=== PATIENT | female | born 1980 ===

== ENCOUNTER 2018-12-11 21:14 | Emergency (ER) | payer MEDICAID ==
[2018-12-11 21:51] VITALS: BP 121/77; PULSE 81; TEMP 98.8; O2SAT 98
[2018-12-11 21:56] VITALS: RESP 18
[2018-12-11 22:22] LABS: BASO % 0.6 % (0.0-2.0); EOS # 0.1 K/uL (0.0-0.7); EOS % 0.8 % (0.0-4.0); HEMOGLOBIN 12.8 g/dL (12.0-16.0); LYMPH # 2.4 K/uL (1.0-4.3); LYMPH % 28.3 % (20.0-40.0); MEAN CELL VOLUME 90.9 fl (81.0-99.0); MEAN CORPUSCULAR HEMOGLOBIN 30.3 pg (27.0-31.0); MEAN CORPUSCULAR HGB CONC 33.4 g/dL (33.0-37.0); MEAN PLATELET VOLUME 9.4 fl (7.2-11.7); MONO # 0.5 K/uL (0.0-0.8); MONO % 6.5 % (0.0-10.0); NEUT # 5.3 K/uL (1.8-7.0); NEUT % 63.8 % (50.0-75.0); RBC 4.21 Mil/uL (3.80-5.20); RED CELL DISTRIBUTION WIDTH 13.1 % (11.5-14.5); WHITE BLOOD COUNT 8.4 K/uL (4.8-10.8)
[2018-12-11 22:38] LABS: ALB/GLOB RATIO 1.4 (1.0-2.1); ALBUMIN 4.3 g/dL (3.5-5.0); ALT/SGPT 30 U/L (9-52); AST/SGOT 22 U/L (14-36); BLOOD UREA NITROGEN 9 mg/dl (7-17); CALCIUM 9.1 mg/dL (8.4-10.2); GFR NON-AFRICAN AMERICAN > 60
--- NOTE | 2018-12-11 23:44 | ED PDOC ---
HPI: Female Pain Time Seen by Provider: 12/11/18 22:43 Chief Complaint (Nursing): Female Genitourinary Chief Complaint (Provider): vaginal spotting History Per: Patient (38 y/o female approx 8 week gestation here with pink spotting noted with wiping today. NO abdominal pain noted. Denies any other complaints.) Past Medical History Reviewed: Historical Data, Nursing Documentation, Vital Signs Vital Signs: Last Vital Signs Temp 98.8 F 12/11/18 21:54 Pulse 81 12/11/18 21:54 Resp 18 12/11/18 21:54 BP 121/77 12/11/18 21:54 Pulse Ox 98 12/11/18 21:54 Primary Care Provider: Doctor,Conversion - Family History Family History: States: No Known Family Hx - Allergies Allergies/Adverse Reactions: Allergies Allergy/AdvReac Type Severity Reaction Status Date / Time No Known Allergies Allergy Verified 12/11/18 21:54 Review of Systems ROS Statement: Except As Marked, All Systems Reviewed And Found Negative Genitourinary Female: Positive for: Vaginal Bleeding Physical Exam - Reviewed Nursing Documentation Reviewed: Yes Vital Signs Reviewed: Yes - Physical Exam Appears: Positive for: Well, Non-toxic, No Acute Distress Head Exam: Positive for: ATRAUMATIC, NORMAL INSPECTION, NORMOCEPHALIC Skin: Positive for: Normal Color, Warm, DRY Eye Exam: Positive for: EOMI, Normal appearance, PERRL ENT: Positive for: Normal ENT Inspection Neck: Positive for: Normal, Painless ROM Cardiovascular/Chest: Positive for: Regular Rate, Rhythm Respiratory: Positive for: CNT, Normal Breath Sounds Gastrointestinal/Abdominal: Positive for: Normal Exam, Soft Pelvic Exam: Positive for: Other (no bleeding noted on exam. cervix not open) Back: Positive for: Normal Inspection Extremity: Positive for: Normal ROM Neurological/Psych: Positive for: Awake, Alert, Normal Tone - Laboratory Results Result Diagrams: 12/11/18 22:15 12/11/18 22:15 Lab Results: Total Bilirubin 0.2 mg/dl (0.2-1.3) 12/11/18 22:15 AST 22 U/L (14-36) 12/11/18 22:15 ALT 30 U/L (9-52) 12/11/18 22:15 Alkaline Phosphatase 41 U/L (38-126) 12/11/18 22:15 Total Protein 7.3 G/DL (6.3-8.2) 12/11/18 22:15 Albumin 4.3 g/dL (3.5-5.0) 12/11/18 22:15 Globulin 3.1 gm/dL (2.2-3.9) 12/11/18 22:15 Albumin/Globulin Ratio 1.4 (1.0-2.1) 12/11/18 22:15 Beta HCG, Quant 078505.00 mIU/mL 12/11/18 22:15 - ECG O2 Sat by Pulse Oximetry: 98 - Progress ED Course And Treament: Patient is Rh negative. d/w Dr. Huerta. After discussion with him we will hold off on Rhogam. Patient to f/u with meter maintenance person. Advised to return for worsening vaginal bleeding. Medical Decision Making Medical Decision Making: EXAM: US Obstetrical, Complete <14 weeks CLINICAL HISTORY: THREATENED MISCARRIAGE TECHNIQUE: Transvaginal and transabdominal imaging of the maternal pelvis and a <14 week gestation with image documentation. COMPARISON: None provided. FINDINGS: GESTATION: A single early living IUP is identified estimated to be 8 weeks and 6 days in age, +/- 4 days. The RITCHIE is 07/17/2019. cardiac activity documented being at a rate of 158 BPM. UTERUS: Small uterine fibroids are seen along the lower uterine segment measuring 0.9 x 0.8 cm and posterior uterine body measuring 1.0 x 0.9 cm. CERVIX: Closed. Unremarkable. OVARIES: Unremarkable. No mass. A 1.7 x 2.0 x 1.8 cm cyst is noted in the right ovary. This cyst appears somewhat deformed which likely represents an involuting corpus luteum cyst. A few tiny left ovarian follicles are identified. FREE FLUID: No free fluid. IMPRESSION: Single living intrauterine . No acute abnormality. Tiny uterine fibroids noted as described above. A 1.7 x 2.0 cm right ovarian cyst is present. Probably an involuting corpus luteum cyst Electronically signed on December 11, 2018 11:34:27 PM EDT by: Corwin Nichols M.D., M.B.A., Certified By [employer] Trained MRI and CT Specialist Disposition - Clinical Impression Clinical Impression: Threatened miscarriage - Patient ED Disposition Is Patient to be Admitted: No - Disposition Disposition: Routine/Home Disposition Time: 23:56 Condition: FAIR Instructions: Threatened Miscarriage
--- NOTE | 2018-12-12 17:40 | US ---
Date of service: 12/11/2018 PROCEDURE: OB Pelvic Ultrasound HISTORY: THREATENED MISCARRIAGE LMP: 10/15/2018, suggesting 8 week 1 day gestation. COMPARISON: None available. FINDINGS: UTERUS: Gestational sac: Single intrauterine gestation. Heart rate: 157 bpm. age (Ultrasound estimated): 8 weeks 2 days based on mean CRL 1.78 cm. Mean sac diameter 3.53 cm. Fern-gestational hemorrhage: None. Date of delivery (Ultrasound estimated) : 07/17/2019. Uterus measures 1.5 x 8.4 x 8.8 cm, with small intramural posterior mid body fibroid measure 1.0 x 0.8 x 0.9 cm. A 2nd fibroid appears subserosal at the lower uterine segment anteriorly or potentially in the high cervix measuring 0.9 x 0.8 x 0.7 cm. CERVIX: Measures 3.1 cm. Long and closed. No cervical abnormality seen. RIGHT OVARY: Measures 3.7 x 2.7 x 2.2 cm. No mass lesion. Normal flow. 2.0 cm corpus luteum cyst identified. LEFT OVARY: Measures 2.8 x 1.8 x 1.6 cm. No solid mass. Normal flow. FREE FLUID: None. OTHER FINDINGS: None. IMPRESSION: 1. A single viable intrauterine gestation is identified with average ultrasonic age of 8 weeks 2 days, concordant with menstrual dates, with cardiac activity recorded 157 beats per minute. No pattern to suggest subchorionic hemorrhage at this time. 2. 2 small uterine fibroids are identified as discussed above with a 2nd one either at the lower uterine segment or high anterior cervix. [facility].m.. 3. Right corpus luteum cyst noted.
== END 2018-12-12 00:05 | disposition home or self-care (01) ==
LOC: H.ER 21:14
DX: O20.0 Threatened abortion (principal); D25.9 Leiomyoma of uterus, unspecified; N83.201 Unspecified ovarian cyst, right side; O34.81 Maternal care for other abnormalities of pelvic organs, first trimester; Z3A.08 8 weeks gestation of pregnancy